=== PATIENT | female | born 1970 | race Caucasian/White ===

== ENCOUNTER → 2018-08-09 | Emergency (ER) | payer OTHER ==
[~2018-08-09] VITALS: Ht 175.3 cm; Wt 81.6 kg
[~2018-08-09] MED LIST: AMOXICILLIN500 MG PO
== END | disposition left against medical advice (07) ==
LOC: ER 14:31
DX: Z53.20 Procedure and treatment not carried out because of patient's decision for unspecified reasons (principal)